=== PATIENT | male | born 1950 | race Caucasian/White ===

== ENCOUNTER 2016-12-06 01:58 | Emergency (ER) | payer OTHER ==
[~2016-12-06] VITALS: Ht 190.5 cm; Wt 90.0 kg
[2016-12-06 02:12] VITALS: BP 175/97; PULSE 87; RESP 18; TEMP 98.3; O2SAT 97
[2016-12-06] MEDS ORDERED: TRAZ1TAB45 PO (02:19)
[2016-12-06] MEDS ORDERED: LEVO50TA4 PO (02:19)
[2016-12-06] MEDS ORDERED: LITH300C2 PO (02:19)
--- NOTE | 2016-12-06 03:07 | PD ---
HPI Chief Complaint: Psychiatric Symptoms Time Seen by Provider: 02:55 Travel History International Travel<30 days: No Contact w/Intl Traveler<30days: No Traveled to known affect area: No History of Present Illness HPI The patient is a 66-year-old male who presents to the emergency department for restlessness and psychiatric evaluation. The patient does have a history of psychiatric problems, states he suffers from PTSD from the [place] War. The patient is currently followed by psychiatrist at the [facility] in [place], [place]. The patient states he takes trazodone at night to help him sleep, took a trazodone at 8 PM and went to bed. However, he awakened at 11 PM and his fianc states he has been restless. The patient denies any suicidal ideation or homicidal ideation, does complain of feeling restless with inability to sleep. He denies illicit drug use or alcohol use. The patient states he has a long list of previous admissions at the [facility] in [place], [place]. He denies any other current physical complaints. PFSH Past Medical History Depression: Yes Medical other: Yes (PTSD ) Tetanus Vaccination: Unknown Past Surgical History Surgical History: Unable to Obtain Social History Alcohol Use: No Tobacco Use: No Substance Use: No Allergies-Medications (Allergen,Severity, Reaction): Coded Allergies: No Known Allergies (Unverified , 12/06/16) Reported Meds & Prescriptions Reported Meds & Active Scripts Active Reported Trazodone (Trazodone HCl) 150 Mg Tablet 150 Mg PO HS Levothyroxine (Levothyroxine Sodium) 50 Mcg Tab 50 Mcg PO DAILY [place] Carbonate 300 Mg Cap 300 Mg PO DAILY Review of Systems Except as stated in HPI: all other systems reviewed are Neg Cardiovascular: No: Chest Pain or Discomfort Respiratory: No: Shortness of Breath Gastrointestinal: No: Nausea, Vomiting, Abdominal Pain Psychiatric: Positive: Mood Disorder (bipolar affective disorder), Other (PTSD) Physical Exam Narrative GENERAL: Awake, alert, 66-year-old male appears his stated age and is in no acute respiratory distress. SKIN: Focused skin assessment warm/dry. HEAD: Atraumatic. Normocephalic. EYES: No injection or drainage. ENT: No nasal bleeding or discharge. Mucous membranes pink and moist. NECK: Trachea midline. No JVD. CARDIOVASCULAR: Regular rate and rhythm. No murmur appreciated. RESPIRATORY: No accessory muscle use. Clear to auscultation. Breath sounds equal bilaterally. GASTROINTESTINAL: Abdomen soft, non-tender, nondistended. No rebound tenderness. MUSCULOSKELETAL: No obvious deformities. No clubbing. No cyanosis. No edema. NEUROLOGICAL: Awake and alert. No obvious cranial nerve deficits. Motor grossly within normal limits. Normal speech. Alert and oriented 4. PSYCHIATRIC: Appears manic with pressured speech. Data Data Last Documented VS Vital Signs Date Time Temp Pulse Resp B/P (MAP) Pulse Ox O2 Delivery O2 Flow Rate FiO2 12/06/16 02:12 98.3 87 18 175/97 (123) 97 Orders Orders Complete Blood Count With Diff (12/06/16 03:01) Comprehensive Metabolic Panel (12/06/16 03:01) Psych Screen (12/06/16 03:01) Lorazepam Inj (Ativan Inj) (12/06/16 03:15) Drug Screen, Random Urine (12/06/16 03:01) [place] (Li) (12/06/16 03:07) MDM Medical Decision Making Medical Screen Exam Complete: Yes Emergency Medical Condition: Yes Medical Record Reviewed: Yes Differential Diagnosis Differential diagnosis includes bipolar affective disorder with acute sly, PTSD, medication side effect, substance induced mood disorder, schizoaffective disorder. Narrative Course Labs were ordered. However, the patient states he wants to go to the OR clinic in [place] to see his psychiatrist. The patient signed out against medical care administrator. The patient is alert, oriented, and denies any suicidal or homicidal ideation. He is advised to return if symptoms worsen or progress. Procedures Procedure Narrative AMA: The risks of leaving against medical advice without further evaluation treatment were discussed with the patient. These risks include cardiac dysfunction, cardiac dysrhythmia, possible heart attack, possible stroke or . The patient indicated understanding of these risks and appeared to have the capacity to make this decision. Diagnosis Primary Impression: Bipolar affective disorder, current episode manic Qualified Codes: F31.12 - Bipolar disorder, current episode manic without psychotic features, moderate Disposition: 07 AGAINST MEDICAL ADVICE Condition: Stable Jacob Austin MD Dec 06, 2016 03:07
[2016-12-06] MEDS ORDERED: LORazepam 2 MG/ML VIAL IV ONE (03:15)
== END 2016-12-06 03:15 | disposition left against medical advice (07) ==
LOC: NEPE 01:58
DX: F31.12 Bipolar disorder, current episode manic without psychotic features, moderate (principal); Z86.59 Personal history of other mental and behavioral disorders; Z53.29 Procedure and treatment not carried out because of patient's decision for other reasons
CPT/HCPCS: 99281